=== PATIENT | female | born 1930 | race Caucasian/White ===

== ENCOUNTER → 2017-01-02 | Outpatient (CLI) | payer OTHER ==
[~2017-01-02] MED LIST: AML5T PO; FER325T PO; FOLI1TAB6 PO; GEMF600T3 PO; TRAM50TA2 PO; TRIA50TA2 PO
[2017-01-02 08:01] LABS: Albumin 3.8 g/dL (3.4-5.0); BUN/Creatinine Ratio 18.8; Bilirubin, Total 0.5 mg/dL (0.2-1.0); Calcium 9.1 mg/dL (8.5-10.1); Potassium 3.4 mmol/L (3.5-5.1); Total Protein 7.8 g/dL (6.4-8.2)
== END | disposition home or self-care (01) ==
LOC: LAB 07:15
PROVIDERS: ATTEND Family Medicine
DX: N18.3 Chronic kidney disease, stage 3 (moderate) (principal); I10 Essential (primary) hypertension
CPT/HCPCS: 36415; 80053; 80061

== ENCOUNTER 2017-03-01 08:19 | Inpatient (IN) | payer OTHER ==
[~2017-03-01] VITALS: Ht 160 cm; Wt 59.9 kg
[2017-03-01 09:13] LABS: Basophils # (auto) 0.1 uL; Basophils % (auto) 0.7 % (0.0-2.0); Eosinophils # (auto) 0.2 uL; Hematocrit 42.5 % (36.0-46.0); Hemoglobin 14.6 g/dL (12.2-16.2); Lymphocytes # (auto) 0.6 uL; Lymphocytes % (auto) 7.2 % (10.0-50.0); Mean Corpuscular Hemoglobin 31.4 pg (28.0-32.0); Mean Corpuscular Hgb Conc. 34.4 g/dL (32.0-36.0); Mean Corpuscular Volume 91.1 fL (80.0-100.0); Mean Platelet Volume 7.9 fL (7.4-10.4); Monocytes # (auto) 0.3 uL; Monocytes % (auto) 4.1 % (0.0-12.0); Neutrophils # (auto) 6.7 uL; Platelet Count (auto) 437 10^3/uL (140-450); Red Cell Distribution Width 13.2 % (11.6-16.0); White Blood Cell 7.8 10^3/uL (4.4-10.8)
[2017-03-01 09:32] LABS: Albumin 3.8 g/dL (3.4-5.0); Alkaline Phosphatase 120 U/L (45-117); Anion Gap 8 (5-15); Aspartate Aminotransferase 17 U/L (15-37); BUN/Creatinine Ratio 16.9; Bilirubin, Total 0.5 mg/dL (0.2-1.0); Blood Urea Nitrogen 22 mg/dL (7-18); Calcium 9.2 mg/dL (8.5-10.1); Carbon Dioxide 32 mmol/L (21-32); Chloride 102 mmol/L (98-107); GFR African American 50 mL/min; GFR Non-African American 41 mL/min; Glucose 111 mg/dL (74-106); Sodium 142 mmol/L (136-145); Total Protein 8.1 g/dL (6.4-8.2)
[2017-03-01] MEDS ORDERED: TETANUS-DIPTH-ACEL PERTUSSIS 0.5ML SYRG IM ONE (09:45)
[2017-03-01] MEDS ORDERED: ACETAMINOPHEN 500 MG TAB PO ONE (10:45)
[2017-03-01] MEDS ORDERED: BACITRACIN TOP OINT 1 UD PKG TOP ONE (12:00)
[2017-03-01 12:42] LABS: Urine Bilirubin Negative (Negative); Urine Color Yellow (Yellow); Urine Glucose Normal (Normal); Urine Ketone Negative (Negative); Urine Nitrite Negative (Negative); Urine RBC 36 /hpf (0 - 4); Urine Squamous Epithelial Cell FEW /hpf (<5); Urine Urobilinogen Normal (Negative); Urine WBC Clumps PRESENT /hpf (None Seen); Urine pH 6.5 (5.0-8.0)
[2017-03-01 12:43] LABS: Urine Blood 2+ /uL (Negative)
[2017-03-01] MEDS ORDERED: POTASSIUM CHL 10% (20 MEQ/15ML) ORAL SOLN PO ONE ×2 (13:15→13:30)
[2017-03-01] MEDS ORDERED: LORazepam 0.5 MG TAB PO PRN (13:45)
[2017-03-01] MEDS ORDERED: traMADol HCL 50 MG TAB PO PRN ×2 (13:45→14:00)
[2017-03-01] MEDS ORDERED: MORPHINE SULF INJ 2 MG/ML SYRINGE 1ML IV PRN ×2 (13:45)
[2017-03-01] MEDS ORDERED: cefTRIAXone 1GM/50ML D5W 50 ML IV ONE (13:45)
[2017-03-01] MEDS ORDERED: HYDROcodone-ACET 5/325MG TAB PO PRN (13:45)
[2017-03-01] MEDS ORDERED: TEMAZEPAM 15 MG CAP PO PRN (13:45)
[2017-03-01] MEDS ORDERED: LACTULOSE 20Gm/30ML SOLN PO PRN (13:45)
[2017-03-01] MEDS ORDERED: NITROGLYCERIN 0.4 MG SL TAB SL PRN (13:45)
[2017-03-01] MEDS ORDERED: TRIAMTERENE/HCTZ 75/50MG TABLET PO ONE (14:00)
[2017-03-01] MEDS ORDERED: GEMFIBROZIL 600 MG TAB PO ONE (14:00)
[2017-03-01] MEDS ORDERED: amLODIPine BESYLATE 5 MG TAB PO ONE (14:00)
[2017-03-01] MEDS ORDERED: FERROUS SULFATE 325 MG TAB PO ONE (14:00)
[2017-03-01] MEDS ORDERED: ENOXAPARIN SOD 30 MG/0.3 ML SYRINGE SC ONE (14:15)
[2017-03-01] MEDS ORDERED: FOLIC ACID 1 MG TAB PO ONE (14:15)
[2017-03-01 14:37] LABS: Temperature: 22.3 C (20.0-25.0)
[2017-03-01] MEDS: FOLIC ACID 1 MG TAB PO SCH (14:46)
[2017-03-01] MEDS: SODIUM CHLORIDE 0.9% 1,000 ML IV SCH (14:58)
[2017-03-01] MEDS ORDERED: TRIAMTERENE/HCTZ 37.5/25 MG CAP PO SCH (16:30)
[2017-03-01] MEDS ORDERED: POTASSIUM CHL 20 Meq TABLET PO ONE (16:45)
[2017-03-01 18:43] VITALS: BP 149/90
[2017-03-01 22:00] VITALS: BP 151/81
[2017-03-01] MEDS: ATORVASTATIN 20 MG TAB PO SCH (22:46)
[2017-03-01] MEDS: FERROUS SULFATE 325 MG TAB PO SCH (22:47)
[2017-03-02] MEDS: SODIUM CHLORIDE 0.9% 1,000 ML IV SCH ×2 (02:06→14:36)
[2017-03-02 05:30] VITALS: BP 147/72
[2017-03-02 09:00] VITALS: BP 151/72
[2017-03-02] MEDS: PROMETHAZINE HCL 25 MG/ML 1ML IV PRN (09:49)
[2017-03-02] MEDS: cefTRIAXone 1GM/50ML D5W 50 ML IV SCH (09:49)
[2017-03-02] MEDS ORDERED: PATIENTS OWN MEDICATION (Folic Acid 1 MG) PO SCH ×2 (10:00)
[2017-03-02] MEDS: ENOXAPARIN SOD 30 MG/0.3 ML SYRINGE SC SCH (10:00)
[2017-03-02] MEDS ORDERED: ENOXAPARIN SOD 40 MG/0.4 ML SYRINGE SC SCH (10:00)
[2017-03-02] MEDS: FERROUS SULFATE 325 MG TAB PO SCH ×2 (11:31→22:18)
[2017-03-02] MEDS: FOLIC ACID 1 MG TAB PO SCH (11:31)
[2017-03-02] MEDS: GEMFIBROZIL 600 MG TAB PO SCH (11:31)
[2017-03-02] MEDS: PANTOPRAZOLE 40 MG TAB PO SCH (11:32)
[2017-03-02] MEDS: amLODIPine BESYLATE 5 MG TAB PO SCH (11:32)
[2017-03-02 13:00] VITALS: BP 143/70
[2017-03-02 17:00] VITALS: BP 152/77
[2017-03-02] MEDS: ACETAMINOPHEN 500 MG TAB PO PRN (17:16)
[2017-03-02 22:00] VITALS: BP 153/75
[2017-03-02] MEDS: ATORVASTATIN 20 MG TAB PO SCH (22:18)
[2017-03-03] MEDS: SODIUM CHLORIDE 0.9% 1,000 ML IV SCH ×3 (03:24→23:29)
[2017-03-03 05:00] VITALS: BP 156/75
[2017-03-03 09:00] VITALS: BP 155/73
[2017-03-03] MEDS: cefTRIAXone 1GM/50ML D5W 50 ML IV SCH (09:47)
[2017-03-03] MEDS: ACETAMINOPHEN 500 MG TAB PO PRN (09:48)
[2017-03-03] MEDS: FERROUS SULFATE 325 MG TAB PO SCH ×2 (10:01→21:59)
[2017-03-03] MEDS: ENOXAPARIN SOD 30 MG/0.3 ML SYRINGE SC SCH (10:01)
[2017-03-03] MEDS: GEMFIBROZIL 600 MG TAB PO SCH (10:02)
[2017-03-03] MEDS: PANTOPRAZOLE 40 MG TAB PO SCH (10:02)
[2017-03-03] MEDS: FOLIC ACID 1 MG TAB PO SCH (10:02)
[2017-03-03] MEDS: amLODIPine BESYLATE 5 MG TAB PO SCH (10:03)
[2017-03-03 11:29] LABS: INR 1.03 (0.9-1.15); Prothrombin Time 11.1 sec (9.37-12.3)
[2017-03-03] MEDS ORDERED: HEPARIN IN NS 1000Units/500mL 0 ML ONE (12:18)
[2017-03-03] MEDS ORDERED: LIDOCAINE 2%HCL (LOCAL ANESTH.) INJ 20ML MDV ONE ×2 (12:18→13:11)
[2017-03-03] MEDS ORDERED: IODIXANOL 320MG/ML 100ML BTL IV ONE (12:18)
[2017-03-03 13:00] VITALS: BP 134/70
[2017-03-03] MEDS ORDERED: VANCOMYCIN HCL 1000 MG VL IR ONE (14:15)
[2017-03-03] MEDS ORDERED: VANCOMYCIN 1GM/250ML D5W 250 ML IV ONE (14:15)
[2017-03-03] MEDS ORDERED: ceFAZolin 1GM/50ML D5W 50 ML IV ONE (14:15)
[2017-03-03] MEDS ORDERED: IOHEXOL 350 MG/ML 100ML IJ ONE (14:34)
[2017-03-03] MEDS ORDERED: LORazepam 0.5 MG TAB PO PRN (16:15)
[2017-03-03] MEDS ORDERED: HYDROcodone-ACET 5/325MG TAB PO PRN (16:15)
[2017-03-03] MEDS ORDERED: ACETAMINOPHEN 325 MG TAB PO PRN (16:15)
[2017-03-03] MEDS ORDERED: ceFAZolin 1GM/50ML D5W 50 ML IV SCH (16:15)
[2017-03-03] MEDS ORDERED: fentaNYL CITRATE 100 MCG/2 ML VL ONE (16:44)
[2017-03-03] MEDS ORDERED: MIDAZOLAM HCL 1MG/1ML-2 ML VIAL ONE (16:45)
[2017-03-03 17:00] VITALS: BP 145/71
[2017-03-03] MEDS: ATORVASTATIN 20 MG TAB PO SCH (21:59)
[2017-03-03 22:00] VITALS: BP 151/79
[2017-03-04 05:00] VITALS: BP 146/72
[2017-03-04 05:34] LABS: Basophils # (auto) 0 uL; Basophils % (auto) 0.5 % (0.0-2.0); Eosinophils # (auto) 0.3 uL; Eosinophils % (auto) 3.3 % (0.0-7.0); Hematocrit 33.6 % (36.0-46.0); Hemoglobin 11.7 g/dL (12.2-16.2); Lymphocytes # (auto) 0.6 uL; Lymphocytes % (auto) 6.6 % (10.0-50.0); Mean Corpuscular Hemoglobin 31.9 pg (28.0-32.0); Mean Corpuscular Hgb Conc. 34.7 g/dL (32.0-36.0); Mean Corpuscular Volume 91.8 fL (80.0-100.0); Mean Platelet Volume 7.9 fL (7.4-10.4); Monocytes # (auto) 0.5 uL; Monocytes % (auto) 5.8 % (0.0-12.0); Neutrophils % (auto) 83.8 % (37.0-80.0); Platelet Count (auto) 286 10^3/uL (140-450); Red Cell Distribution Width 11.6 % (11.6-16.0); White Blood Cell 8.4 10^3/uL (4.4-10.8)
[2017-03-04 05:40] LABS: BUN/Creatinine Ratio 14.3; Calcium 7.8 mg/dL (8.5-10.1)
[2017-03-04 05:58] LABS: Potassium 2.7 mmol/L (3.5-5.1)
[2017-03-04 07:52] VITALS: BP 153/74
[2017-03-04] MEDS: FOLIC ACID 1 MG TAB PO SCH (09:08)
[2017-03-04] MEDS: ENOXAPARIN SOD 30 MG/0.3 ML SYRINGE SC SCH (09:08)
[2017-03-04] MEDS: cefTRIAXone 1GM/50ML D5W 50 ML IV SCH (09:08)
[2017-03-04] MEDS: PANTOPRAZOLE 40 MG TAB PO SCH (09:09)
[2017-03-04] MEDS: FERROUS SULFATE 325 MG TAB PO SCH (09:09)
[2017-03-04] MEDS: amLODIPine BESYLATE 5 MG TAB PO SCH (09:09)
[2017-03-04] MEDS: GEMFIBROZIL 600 MG TAB PO SCH (09:09)
[2017-03-04] MEDS ORDERED: POTASSIUM CHL 20 Meq TABLET PO ONE ×2 (09:45→16:30)
[2017-03-04] MEDS: PROMETHAZINE HCL 25 MG/ML 1ML IV PRN (10:04)
[2017-03-04 11:52] VITALS: BP 154/78
[2017-03-04] MEDS: SODIUM CHLORIDE 0.9% 1,000 ML IV SCH (16:37)
[2017-03-04 16:54] VITALS: BP 154/78
== END 2017-03-04 18:00 | disposition home or self-care (01) | DRG 244 ==
LOC: ER 08:19 → TELE 08:20 → TELE-WESTW 14:50
PROVIDERS: ADMIT Internal Medicine; ATTEND Internal Medicine Pulmonary Disease
PROC: 0JH606Z Insertion of Pacemaker, Dual Chamber into Chest Subcutaneous Tissue and Fascia, Open Approach (ICD-10-PCS; principal; 2017-03-03)
PROC: 02H63JZ Insertion of Pacemaker Lead into Right Atrium, Percutaneous Approach (ICD-10-PCS; 2017-03-03)
PROC: 02HK3JZ Insertion of Pacemaker Lead into Right Ventricle, Percutaneous Approach (ICD-10-PCS; 2017-03-03)
DX: I49.5 Sick sinus syndrome (principal); E78.5 Hyperlipidemia, unspecified; E87.6 Hypokalemia; I12.9 Hypertensive chronic kidney disease with stage 1 through stage 4 chronic kidney disease, or unspecified chronic kidney disease; N18.9 Chronic kidney disease, unspecified; S01.81XA Laceration without foreign body of other part of head, initial encounter; W19.XXXA Unspecified fall, initial encounter; Y92.009 Unspecified place in unspecified non-institutional (private) residence as the place of occurrence of the external cause; Z83.3 Family history of diabetes mellitus; Z88.6 Allergy status to analgesic agent; Z88.5 Allergy status to narcotic agent; Z90.710 Acquired absence of both cervix and uterus; Z90.89 Acquired absence of other organs; K21.9 Gastro-esophageal reflux disease without esophagitis; N30.91 Cystitis, unspecified with hematuria; Z85.51 Personal history of malignant neoplasm of bladder; Z95.0 Presence of cardiac pacemaker
CPT/HCPCS: 33208; 36415; 70450; 71010; 72125; 80048; 80053; 81001; 82550; 82607; 82746; 82962; 84132; 84443; 84484; 85025; 85610; 85652; 87086; 90471; 90715; 93005; 93306; 99152; C1785; J0690; J0696; J2250; Q9967

== ENCOUNTER → 2017-03-09 | Outpatient (CLI) | payer OTHER ==
[~2017-03-09] MED LIST changes: -TRIA50TA2 PO
[2017-03-09 11:20] LABS: Calcium 8.5 mg/dL (8.5-10.1); Potassium 3.1 mmol/L (3.5-5.1)
[2017-03-09 11:24] LABS: BUN/Creatinine Ratio 11.7
== END | disposition home or self-care (01) ==
LOC: LAB 10:31
PROVIDERS: ATTEND Internal Medicine Cardiovascular Disease
DX: E87.6 Hypokalemia (principal)
CPT/HCPCS: 36415; 80048